=== PATIENT | female | born 1955 | race Asian ===

== ENCOUNTER → 2020-02-21 | Outpatient (CLI) | payer MEDICARE, OTHER, SELFPAY | END | disposition home or self-care (01) | LOC: LABSPEC 09:43 | PROVIDERS: PCP Physician Assistant; Referring Provider Physician Assistant; Visit Provider Physician Assistant | DX: Z11.59 Encounter for screening for other viral diseases (principal) | CPT/HCPCS: 87635; 94799; U0003 ==

== ENCOUNTER 2020-04-28 21:10 | Emergency (ER) | payer MEDICARE, OTHER, SELFPAY ==
[2020-04-28 21:10] VITALS: BP 200/95; PULSE 68; RESP 17; TEMP 36.1; O2SAT 100; BMI 26.8
--- NOTE | 2020-04-28 21:12 | ED.RN ---
NO OLD EKGS IN MUSE
--- NOTE | 2020-04-28 21:16 | EKG12_ITS ---
Test Reason : CP Blood Pressure : / mmHG Vent. Rate : 059 BPM Atrial Rate : 059 BPM P-R Int : 166 ms QRS Dur : 082 ms QT Int : 432 ms P-R-T Axes : 051 005 036 degrees QTc Int : 427 ms Sinus bradycardia Poor R wave progression Confirmed by NADIYA JONES, ZAHEER ([id number]), editorial project manager HAM MANDUJANO ([id number]) on 05/01/2020 12:31:30 PM Referred By: SOPHY Confirmed By:ZAHEER HEARN MD
[2020-04-28] MEDS: Morphine 4 MG/ML Syringe IV (21:30)
[2020-04-28] MEDS: Ondansetron 4 MG/2 ML Vial IV (21:30)
[2020-04-28] MEDS: Aspirin 81 MG TAB.CHEW 324 MG PO (21:31)
--- NOTE | 2020-04-28 21:32 | ED.VIS.GEN ---
History of Present Illness Chief Complaint: Chest Pain Informant: Patient Onset: Today Context: Gradual Onset Timing: Continuous Current Severity: Moderate Maximum Severity: Moderate Narrative: The patient is a 64-year-old female with history of coronary vascular disease status post CABG in [place] in July of this year the presents to the emergency department chest pain. The patient states her pain began slightly before eating. She states after eating, it made the pain worse. She describes cramping pain in the mid chest. She denies shortness of breath. She denies any fevers or chills. She states that she has been doing cardiac rehab without any cardiac symptoms. She has been compliant with her medications. She has been mildly nauseated but denies any vomiting. She denies any food intolerance. Prior similar symptoms: No Recent Illness/Hospitalization: No Past Medical History - Allergies and Home Meds Allergies/Adverse Reactions: Allergies birch Allergy (Verified 04/28/20 21:45) intolerance shellfish derived Allergy (Verified 04/28/20 21:45) Hives adhesive tape Adverse Reaction (Verified 04/28/20 21:45) Rash erythromycin base Adverse Reaction (Verified 04/28/20 21:45) Upset Stomach hydrocodone Adverse Reaction (Verified 04/28/20 21:45) Shortness of breath iodine Adverse Reaction (Verified 04/28/20 21:45) Anaphylaxis latex Adverse Reaction (Verified 04/28/20 21:45) Itching lisinopril Adverse Reaction (Verified 04/28/20 21:45) cough nickel Adverse Reaction (Verified 04/28/20 21:45) PT UNSURE OF REACTION Penicillins Adverse Reaction (Verified 04/28/20 21:45) Hives Primary Care Physician: Karine Ayala, PA [Primary Care Provider] - Prior records reviewed: Yes Past Medical History: - - Cardiovascular disease, hypertension Surgical History: coronary bypass surgery Review of Systems General: Denies: Chills, Fever, Sweats Eyes: Denies: Visual changes - bilaterally, Diplopia ENT: Denies: Rhinorrhea, Sore throat Cardiovascular: Reports: Chest pain. Denies: Palpitations Respiratory: Denies: Dyspnea, Cough, Dyspnea on exertion Gastrointestinal: Denies: Abdominal pain, Nausea, Vomiting, Diarrhea, Melena, Hematochezia Genitourinary: Denies: Dysuria, Hematuria, Frequency Musculoskeletal: Denies: Back pain, Extremity Pain Skin: Denies: Rash, Wounds Neurological: Denies: Headache, Weakness, Numbness Physical Exam Vital Signs/Narrative: Vital Signs Temp Pulse Resp BP Pulse Ox 04/28/20 21:10 97 F L 68 17 200/95 H 100 Inital Vital Signs reviewed: Yes General: Well nourished, Well developed, No Acute Distress Head: Normocephalic, Atraumatic Eyes: Perrl, EOMI ENT: Moist mucous membranes, No rhinorrhea Neck: Supple, Nontender Cardiovascular: Regular rate, Regular rhythm, No murmurs Respiratory: No distress, CTA bilaterally, Chest nontender Abdomen: Soft, Nontender, Nondistended, Normal bowel sounds Back: Nontender, Normal Inspection Extremities: Nontender, No edema Skin: Normal color, No rash Neurological: Alert, Oriented x3, Cranial nerves II-XII grossly intact, Normal Strength, Normal Sensation Psychological: Normal affect, Normal Mood Diagnostic/Tx/Re-eval Clinical Impression(s) from Imaging Studies Chest X-Ray 04/28/20 22:03 IMPRESSION: No acute pulmonary findings. Electronically Signed: Maurilio Gomez MD at 22:18 EDT Tel , Service support , Abnormal Lab Results 04/28/20 04/28/20 21:25 21:25 WBC 7.3 RBC 5.06 Hgb 14.0 Hct 44.0 MCV 87.0 MCH 27.7 MCHC 31.8 L RDW Std Deviation 41.5 RDW Coeff of Sarahi 13.2 Plt Count 234 MPV 11.7 Immature Gran % (Auto) 0.100 Neut % (Auto) 57.1 Lymph % (Auto) 34.1 Adams % (Auto) 7.3 Eos % (Auto) 1.1 Baso % (Auto) 0.3 Absolute Neuts (auto) 4.2 Absolute Lymphs (auto) 2.49 Nucleated RBC % 0 Sodium 140 Potassium 3.9 Chloride 106 Carbon Dioxide 28.0 Anion Gap 6 BUN 11 Creatinine 0.87 Estim Creat Clear Calc 50.31 Est GFR (MDRD) Af Amer 84 Est GFR (MDRD) Non-Af 69 BUN/Creatinine Ratio 12.7 Glucose 398 H Calcium 8.8 Magnesium 2.2 Total Bilirubin 0.30 Direct Bilirubin 0.14 AST 13 L ALT 20 Alkaline Phosphatase 215 H Troponin I < 0.015 Total Protein 7.5 Albumin 3.3 Globulin 4.2 Lipase 81 - Rhythm Strip Rhythm Strip: Sinus Rhythm Rate: 80 Ectopy: None - EKG Initial EKG Interpretation: Sinus Rhythm, No Acute Injury Pattern Prior: No Prior - Medical Decision Making Patient presents with substernal chest pain. It was worsened after eating. She was mildly nauseated with it. EKG was obtained on arrival. Was sinus rhythm. There is no acute ischemic change. I do not have an old to compare to. Patient was given nitro and morphine. She had total resolution of her pain. Her nausea was improved with Zofran. Initial cardiac enzymes were negative. The patient has not been having exertional pain. She was given a GI cocktail and is resting comfortably. My suspicion for acute coronary syndrome is low, and the patient is now pain-free. I did discuss options with the patient. She is comfortable with a repeat troponin testing at 3 hours. I do feel that this is negative, she can safely follow-up with her investigations director. Disposition is currently pending. Impression 1. Chest pain ED Disposition - Plan for ED Patient: Instructions: ED Chest Pain Atypical Unkn Cause Referrals: Karine Ayala PA [Primary Care Provider] -
[2020-04-28] MEDS: 0.9% Normal Saline 1,000 ML 150 ML IV (21:35)
[2020-04-28 21:36] VITALS: O2SAT 100
[2020-04-28 21:40] VITALS: BP 174/77; PULSE 72
[2020-04-28 21:40] LABS: Absolute Lymphocyte Count 2.49 X10^3/uL (0.83-4.51); Absolute Neutrophil Count 4.2 X10^3/uL (2.0-7.7); Basophil# 0.02 X10^3/uL; Basophil% 0.3 % (0-1); Eosinophil# 0.08 X10^3/uL; Eosinophils% 1.1 % (0-5); Lymphocyte # 2.49 X10^3/ul (4.0); Lymphocyte % 34.1 % (19-41); Mean Corp Hgb Conc 31.8 g/dL (32-36); Mean Corpuscular Hgb 27.7 pg (27.0-32.0); Mean Platelet Vol. 11.7 fl (6.2-12.0); Monocyte# 0.53 X10^3/uL; Monocyte% 7.3 % (0-10); NRBC Flagged by Analyzer 0 % (0-5); Neutrophil # 4.17 X10^3/uL (2.7-7.7); Neutrophil % 57.1 % (47-70); Platelet Count 234 K/mm3 (150-450); RBC Distribution Width CV 13.2 % (11.6-14.6); RBC Distribution Width SD 41.5 fl (35.1-43.9); Red Blood Count 5.06 M/mm3 (4.2-5.4); White Blood Count 7.3 K/mm3 (4.4-11.0)
[2020-04-28] MEDS: Nitroglycerin SL (ED/IMG/CATH) 0.4 MG TABLET SUBLINGUAL ×3 (21:40→21:50)
[2020-04-28 21:45] VITALS: BP 167/81; PULSE 70
[2020-04-28 21:50] VITALS: BP 150/79; PULSE 74
[2020-04-28 22:02] LABS: AST(SGOT) 13 U/L (15-37); Alanine Aminotransfer ALT/SGPT 20 U/L (13-56); Albumin, Serum 3.3 g/dL (3.2-5.0); Alkaline Phosphatase 215 U/L (45-117); Anion Gap 6 (5-15); BUN 11 mg/dL (7-18); BUN/Creat Ratio 12.7 RATIO (10-20); Bilirubin, Direct 0.14 mg/dL (0.00-0.30); Calcium,Total 8.8 mg/dL (8.5-10.1); Chloride 106 mmol/L (98-107); Creatinine, Serum 0.87 mg/dL (0.55-1.02); EST Glomerular Filtration Rate 69 mL/min (>60); Est Glom Filt Rate - Afr Amer 84 mL/min (>60); Estimated Creatinine Clearance 50.31 ml/min; Globulin 4.2 g/dL (2.2-4.2); Glucose 398 mg/dL (74-106); Lipase 81 U/L (73-393); Magnesium 2.2 mg/dL (1.6-2.6); Potassium 3.9 mmol/L (3.5-5.1); Protein, Total 7.5 g/dL (6.4-8.2); Sodium Level 140 mmol/L (136-145)
--- NOTE | 2020-04-28 22:03 | RAD_ITS ---
STUDY: X-RAY CHEST REASON FOR EXAM: Female, 64 years old. CHEST PAIN X 2.5 HRS. TECHNIQUE: Single frontal view of the chest. COMPARISON: None. FINDINGS: Median sternotomy plates and CABG clips. There is no demonstrated pleural abnormality. Normal size heart. Normal mediastinum and behzad. Normal visualized pulmonary arteries. Normal visualized aortic arch and descending thoracic aorta. Normal visualized thoracic spine. Normal visualized ribs, clavicles, and shoulders. There is no demonstrated abnormality of the visualized soft tissue structures of the upper abdomen. RAD/Chest 1 View (Portable) IMPRESSION: No acute pulmonary findings. Electronically Signed: Maurilio Gomez MD at 22:18 EDT Tel , Service support ,
[2020-04-28] MEDS: Mag Hydrox/Al Hydrox/Simeth 30 ML UDC PO (22:46)
[2020-04-28 23:19] VITALS: PULSE 63; RESP 16; O2SAT 96
[2020-04-29 00:43] VITALS: BP 151/77; PULSE 62; RESP 15; RESP 16; O2SAT 99
[2020-04-29] MEDS: Sucralfate 1 GM Tablet PO (00:54)
== END 2020-04-29 00:59 | disposition home or self-care (01) ==
LOC: ED 22:01
PROVIDERS: Emergency Provider Emergency Medicine; PCP Physician Assistant
DX: R07.9 Chest pain, unspecified (principal); I25.10 Atherosclerotic heart disease of native coronary artery without angina pectoris; I10 Essential (primary) hypertension; Z95.1 Presence of aortocoronary bypass graft
CPT/HCPCS: 71045; 80048; 80076; 83690; 83735; 84484; 85025; 93005; 96361; 96374; 96375; 99284; J7030; A4216; J2405

== ENCOUNTER 2020-09-28 14:41 | Emergency (ER) | payer MEDICARE, OTHER, SELFPAY ==
[2020-09-28 14:42] VITALS: BP 182/101; PULSE 77; RESP 16; TEMP 36.6; O2SAT 100; BMI 25.7
--- NOTE | 2020-09-28 15:08 | CT_ITS ---
STUDY: CT ABDOMEN AND PELVIS WITHOUT CONTRAST REASON FOR EXAM: Female, 64 years old. Right lower quadrant pain RADIATION DOSAGE (If Supplied By Facility): CTDIvol = ( 6.85 ) mGy, DLP = ( 312.82 ) mGycm TECHNIQUE: Transaxial images were obtained from the dome of the diaphragm to the symphysis pubis without oral contrast, and without intravenous contrast. Sagittal and coronal images were reconstructed. Individualized dose optimization techniques were used for this CT. COMPARISON: None. FINDINGS: The visualized lung bases are unremarkable. Postsurgical change status post CABG Normal liver. Contracted thick-walled gallbladder without calcified stones likely physiologic however if concern for gallbladder disease ultrasound recommended.. Normal spleen. Normal pancreas. Normal bilateral adrenal glands. Normal right kidney. Normal left kidney. Normal visualized stomach. Normal small intestine. Normal colon. The appendix is visualized and appears normal. Atherosclerotic changes of the aorta without evidence for aneurysm Normal inferior vena cava. Normal retroperitoneum. Incompletely distended thick-walled bladder likely of no significance. Normal abdominal wall. Lumbar spine demonstrates mild spondylosis CT/Abdomen/Pelvis without Cont IMPRESSION: Contracted thick-walled gallbladder without calcified stones likely physiologic however if concern for gallbladder disease ultrasound recommended. No acute abnormalities. Specifically, no evidence for renal obstruction or acute appendicitis. Electronically Signed: Octavio Pearce MD at 15:56 EDT , Service support ,
[2020-09-28] MEDS: 0.9% Normal Saline 1,000 ML 1000 ML IV (15:24)
[2020-09-28] MEDS: Morphine 4 MG/ML Syringe IV (15:24)
[2020-09-28] MEDS: Ondansetron 4 MG/2 ML Vial IV (15:24)
[2020-09-28 15:27] LABS: Absolute Lymphocyte Count 2.77 X10^3/uL (0.83-4.51); Absolute Neutrophil Count 2.7 X10^3/uL (2.0-7.7); Basophil# 0.02 X10^3/uL; Basophil% 0.3 % (0-1); Eosinophil# 0.12 X10^3/uL; Hematocrit 43.7 % (37-47); Hemoglobin 14.2 g/dL (12.0-15.0); Lymphocyte # 2.77 X10^3/ul (4.0); Mean Corp Hgb Conc 32.5 g/dL (32-36); Mean Corpuscular Hgb 27.8 pg (27.0-32.0); Mean Corpuscular Volume 85.7 fL (81-99); Mean Platelet Vol. 11.4 fl (6.2-12.0); Monocyte# 0.39 X10^3/uL; Monocyte% 6.5 % (0-10); NRBC Flagged by Analyzer 0 % (0-5); Neutrophil # 2.71 X10^3/uL (2.7-7.7); Platelet Count 217 K/mm3 (150-450); RBC Distribution Width SD 40.5 fl (35.1-43.9)
[2020-09-28 15:33] LABS: Bacteria 0 SEEN /hpf (None Seen); Mucous, Urine 0 SEEN /hpf (<or=2+); Red Blood Cells-Urine 0 SEEN /hpf (0-5); Squamous Epithelial Cells - UA 0 SEEN /hpf (5-10); White Blood Cells 0 SEEN /hpf (0-5)
[2020-09-28 15:34] LABS: Color, Urine Yellow (Yellow); Glucose, Dipstick 1000 mg/dl (Normal); Ketone-Dipstick Negative (Negative); Leukocyte Esterase-Dipstick Negative /ul (Negative); Nitrite-Dipstick Negative (Negative); Occult Blood-Urine Negative /ul (Negative); Protein-Dipstick Negative (Negative); Urine Bilirubin Dipstick Negative (Negative); Urine Clarity Clear (Clear); Urine Urobilinogen Normal (Normal)
[2020-09-28 15:47] LABS: ALB/GLOB Ratio 0.7 RATIO (0.9-2.4); AST(SGOT) 30 U/L (15-37); Alanine Aminotransfer ALT/SGPT 26 U/L (13-56); Albumin, Serum 3.3 g/dL (3.2-5.0); Alkaline Phosphatase 146 U/L (45-117); Anion Gap 5 (5-15); BUN 15 mg/dL (7-18); BUN/Creat Ratio 22.6 RATIO (10-20); Calcium,Total 8.9 mg/dL (8.5-10.1); Chloride 104 mmol/L (98-107); Creatinine, Serum 0.66 mg/dL (0.55-1.02); EST Glomerular Filtration Rate 95 mL/min (>60); Est Glom Filt Rate - Afr Amer 114 mL/min (>60); Estimated Creatinine Clearance 43.77 ml/min; Globulin 4.7 g/dL (2.2-4.2); Glucose 248 mg/dL (74-106); Potassium 4.2 mmol/L (3.5-5.1); Sodium Level 135 mmol/L (136-145)
--- NOTE | 2020-09-28 16:11 | US_ITS ---
STUDY: ABDOMINAL ULTRASOUND - RIGHT UPPER QUADRANT REASON FOR VISIT: Female, 64 years old Pain TECHNIQUE: Ultrasound evaluation of the right upper quadrant was performed with real-time and static gama-scale imaging. TECHNICAL QUALITY: Adequate. COMPARISON: None. FINDINGS: Liver: The liver measures 13 cm. There is normal echogenicity of the liver. The bile ducts are within normal limits. There is hepatic color flow. The direction of portal flow is hepatopetal. There is no demonstrated mass lesion. Gallbladder: Normal distended gallbladder. The gallbladder wall measures 2.4 mm. There is a negative sonographic Fletcher''s sign. There is no pericholecystic fluid. There are no gallstones. Common Bile Duct (C.B.D.): The common bile duct measures 2.8 mm. Pancreas: Normal size of the head, body and tail of the pancreas. There is normal echogenicity of the pancreas. There is no demonstrated pancreatic mass or cyst. Right Kidney: Normal size of the right kidney. The right kidney measures 9.2 x 5.5 x 5.2 cm. Normal renal cortex. The right cortex measures 1.5 cm. There is no demonstrated renal mass or cyst. There is no right hydronephrosis. US/Gallbladder IMPRESSION: Normal right upper quadrant ultrasound examination. Electronically Signed: Octavio Pearce MD at 18:38 EDT , Service support ,
[2020-09-28 17:00] VITALS: BP 164/83; PULSE 69; RESP 16; O2SAT 100
--- NOTE | 2020-09-28 18:43 | ED.DCSUM_ITS ---
- ER Visit Summary Date of Service: 09/28/20 Chief Complaint: Abdominal pain History of Present Illness: The patient is a 64 F who sees Kirt Ayala. She reports she has right-sided abdominal pain began 4 to 5 days ago. Is gradually gotten worse. It is a continuous sharp pain is 10 of 10 with movement 5 out of 10 at rest. She denies any associated nausea, vomiting, or diarrhea. Her last bowel movement was today. No melena or hematochezia. No dysuria or frequency. She denies any flank pain. Physical Examination: Vitals: Stable. Afebrile. General: Well-nourished and well-developed. Head: Normocephalic atraumatic. Neck: Supple, no lymphadenopathy. No JVD. Nontender. Cardiovascular: Regular rate and rhythm. No murmurs. Respiratory: No respiratory distress. Clear to auscultation bilaterally. Abdominal: Soft, mild tenderness to palpation in the right upper and right lower quadrants, nondistended, normal bowel sounds. No guarding, rebound, or peritoneal signs. Back: Nontender. Extremities: Nontender, no edema. Skin: Normal color, no rash. Neurologic: Alert and oriented ?3. Cranial nerves II through XII are intact. Normal strength and sensation. Psych: Normal affect. Test Results: CBC shows stable neutrophils 45 lymphocytes 46. Chem-7 shows a sodium 135 and glucose 248. LFTs show globulin of 4.7 and alk phos of 146. Clinical Impression(s) from Imaging Studies Abdomen/Pelvis CT 09/28/20 15:08 IMPRESSION: Contracted thick-walled gallbladder without calcified stones likely physiologic however if concern for gallbladder disease ultrasound recommended. No acute abnormalities. Specifically, no evidence for renal obstruction or acute appendicitis. Electronically Signed: Octavio Pearce MD at 15:56 EDT , Service support , Gallbladder Ultrasound 09/28/20 16:11 IMPRESSION: Normal right upper quadrant ultrasound examination. Electronically Signed: Octavio Pearce MD at 18:38 EDT , Service support , Emergency Department Course and Treatment: Patient was given morphine and Zofran IV. She is resting comfortably. Treatment Plan: Patient will be discharged with Zofran as needed. Instructed use Tylenol and/or ibuprofen for pain. Follow-up with her primary care physician 1 to 2 days if not improving. Return to the emergency department for any worsening symptoms. Disposition: To home in improved and stable condition. Impression: 1. Abdominal pain, uncertain cause. This note was generated with [employer] dictation software. It may contain incorrect words, spelling, and punctuation that were not noted in review of the chart prior to signing ED Disposition - Plan for ED Patient: Disposition: Home or Assisted Living Instructions: ED Abdominal Pain Unkn Cause Fem Prescriptions: Ondansetron [Zofran Odt] 4 mg PO Q8H PRN PRN #10 tablet PRN Reason: Nausea Prescription Printed Referrals: Karine Ayala PA [Primary Care Provider] - 1-2 Days if not improving
[2020-09-28 19:02] VITALS: BP 156/88; PULSE 89; RESP 16; O2SAT 96
== END 2020-09-28 19:02 | disposition home or self-care (01) ==
LOC: ED 15:35
PROVIDERS: Emergency Provider Emergency Medicine; PCP Physician Assistant
DX: R10.30 Lower abdominal pain, unspecified (principal); I25.10 Atherosclerotic heart disease of native coronary artery without angina pectoris; E11.9 Type 2 diabetes mellitus without complications; I10 Essential (primary) hypertension
CPT/HCPCS: 74176; 76705; 80053; 81001; 85025; 96361; 96374; 96375; 99283; J7030; Q9967; A4216; J2405

== ENCOUNTER 2021-06-05 11:03 | Emergency (ER) | payer MEDICARE, OTHER, SELFPAY ==
[2021-06-05 11:04] VITALS: BP 148/95; PULSE 113; RESP 16; TEMP 37.4; O2SAT 97; BMI 23.0
--- NOTE | 2021-06-05 11:34 | EX.ED.DYSGE1 ---
HPI History of Present Illness Chief Complaint: Cough Informant: patient Narrative Narrative: 65-year-old female states that she has been ill with Covid symptoms since . Patient notes that she has been doing reasonably well but her diaphragm hurts from coughing. She notes fever headaches body aches. She is a diabetic and has had prior CABG. She denies any shortness of breath at this time. She did a home test last night. [facility] Medical History (Updated 06/05/21 @ 11:[address] Epifanio Germain, ) CAD (coronary artery disease) Home Medications aspirin 81 mg PO DAILY@0800 04/28/20 [History Last Taken Unknown] atorvastatin 80 mg PO QHS 04/28/20 [History Last Taken Unknown] benzonatate 100 mg PO TID PRN PRN 04/28/20 [History Last Taken Unknown] clopidogrel 75 mg PO DAILY 04/28/20 [History Last Taken Unknown] dulaglutide 0.75 mg SQ QWEEK 04/28/20 [History Last Taken Unknown] duloxetine 30 mg PO DAILY 04/28/20 [History Last Taken Unknown] empagliflozin 10 mg PO DAILY 04/28/20 [History Last Taken Unknown] fluoxetine 20 mg PO DAILY 04/28/20 [History Last Taken Unknown] insulin degludec 30 unit SQ QHS 04/28/20 [History Last Taken Unknown] insulin lispro 8 unit SQ TID 04/28/20 [History Last Taken Unknown] losartan 25 mg PO DAILY 04/28/20 [History Last Taken Unknown] metformin 1,000 mg PO BID 04/28/20 [History Last Taken Unknown] metoprolol succinate 25 mg PO DAILY 04/28/20 [History Last Taken Unknown] omeprazole 20 mg PO DAILY 04/28/20 [History Last Taken Unknown] sucralfate 1 gm PO 4X/DAY #30 udc 04/29/20 [Rx Last Taken Unknown] ondansetron 4 mg PO Q8H PRN PRN #10 tablet 09/28/20 [Rx Last Taken Unknown] benzonatate 200 mg PO TID PRN PRN #30 capsule 06/05/21 [Rx Last Taken Unknown] Allergy/AdvReac Type Severity Reaction Status Date / Time birch Allergy intolerance Verified 06/05/21 11:06 shellfish derived Allergy Hives Verified 06/05/21 11:06 adhesive tape AdvReac Rash Verified 06/05/21 11:06 erythromycin base AdvReac Upset Verified 06/05/21 11:06 Stomach hydrocodone AdvReac Shortness Verified 06/05/21 11:06 of breath iodine AdvReac Anaphylaxis Verified 06/05/21 11:06 latex AdvReac Itching Verified 06/05/21 11:06 lisinopril AdvReac cough Verified 06/05/21 11:06 nickel AdvReac PT UNSURE Verified 06/05/21 11:06 OF REACTION Penicillins AdvReac Hives Verified 06/05/21 11:06 Surgical History (Updated 06/05/21 @ 11:[address] Epifanio Germain DO) Hx of CABG Social History (Updated 06/05/21 @ 11:[address] Epifanio Germain DO) current gender identity: female Smoking Status: Never smoker ROS ROS ED Constitutional Constitutional ED: Reports chills and fever(s); Denies weight loss Eyes Eyes: Denies change in vision or diplopia ENT ENT ED: Reports rhinorrhea; Denies ear pain or sore throat Cardiovascular Cardiovascular: Reports chest pain; Denies orthopnea, palpitations or racing heartbeat Respiratory/Chest Respiratory/Chest: Reports cough; Denies dyspnea, dyspnea on exertion, orthopnea or sputum Gastrointestinal Gastrointestinal: Reports nausea; Denies abdominal pain, diarrhea or vomiting Genitourinary Genitourinary ED: Denies dysuria, hematuria or urinary frequency Musculoskeletal Musculoskeletal: Reports myalgias; Denies arthralgias Integumentary Denies abscess or rash Neurologic Neurologic: Reports headache(s); Denies weakness Psychiatric Psychiatric: Denies anxiety, depression, suicidal ideation or suicidal thoughts Endocrine Endocrinology: Denies polydipsia, polyphagia or polyuria Allergic/Immunologic Allergic/Immunologic ED: Denies mouth swelling, tongue swelling or urticaria EXAM Physical Exam Const Vital Signs: 06/05/21 11:04 Temperature 99.4 F H Temperature Source Temporal Pulse Rate 113 H Respiratory Rate 16 Blood Pressure 148/95 H Blood Pressure Mean 112 Pulse Ox 97 Oxygen Delivery Method Room Air Positive well nourished and well developed General Appearance ED: well developed HEENT Reports normocephalic, head/scalp atraumatic, TM's clear and moist mucous membranes Negative for trauma Tympanic Membrane ED: Yes TM's clear Eyes PERRL and EOMs intact bilaterally Neck no lymphadenopathy, supple and no JVD Resp normal respiratory effort and clear to auscultation bilaterally Cardio regular rate, regular rhythm and no murmurs GI normal to inspection, nondistended, normoactive bowel sounds and non-tender Palpation: soft Back/Spine no CVA tenderness and normal ROM Extremity normal to inspection General Extremety ED: Negative for edema General Extremity: Negative for edema Neuro oriented x3 and CN's II-XII intact bilaterally Sensorium / Orientation: alert Motor Exam: strength 5/5 throughout Psych mental status grossly normal Mood & Affect: Negative for depressed or tearful Skin no rashes or lesions noted and no wounds MDM MDM MDM Narrative Medical decision making narrative: Patient clinically appears to be a well Covid patient. She states that Bartolo Flaherty have helped her out in the past and would like some. I think this is very reasonable. This point she is not requiring any supplemental oxygen. She is on about day 10 of Covid. Discharge Plan Triage Chief Complaint: Cough ED Provider: Epifanio Germain Dx/Rx/DC Orders Clinical Impression: COVID-19, Cough Instructions: Coronavirus Disease 2019 (COVID-19): Caring for Yourself or Others Prescriptions: New benzonatate [benzonatate] 100 MG capsule 200 mg PO TID PRN PRN (Reason: Cough) Qty: 30 RF: 0 No Action atorvastatin 80 MG tablet 80 mg PO QHS RF: 0 clopidogrel 75 MG tablet 75 mg PO DAILY RF: 0 aspirin 81 MG tablet 81 mg PO DAILY@0800 RF: 0 benzonatate 100 MG capsule 100 mg PO TID PRN PRN (Reason: Cough) RF: 0 losartan 25 MG tablet 25 mg PO DAILY RF: 0 omeprazole 20 MG capsule 20 mg PO DAILY RF: 0 metoprolol succinate 25 MG tablet extended release 24 hr 25 mg PO DAILY RF: 0 fluoxetine 20 MG capsule 20 mg PO DAILY RF: 0 insulin lispro 100 UNIT/ML insulin pen 8 unit SQ TID RF: 0 metformin 1,000 MG tablet extended release 24hr 1,000 mg PO BID RF: 0 duloxetine 30 MG capsule 30 mg PO DAILY RF: 0 empagliflozin 10 MG tablet 10 mg PO DAILY RF: 0 dulaglutide 0.75 MG/0.5 ML pen injector 0.75 mg SQ QWEEK RF: 0 insulin degludec 100 UNIT/ML solution 30 unit SQ QHS RF: 0 sucralfate 1 GM/10 ML suspension 1 gm PO 4X/DAY Qty: 30 RF: 0 ondansetron 4 MG tablet 4 mg PO Q8H PRN PRN (Reason: Nausea) Qty: 10 RF: 0 Primary Care Provider: Karine Ayala Referrals: Karine Ayala, PA [Primary Care Provider] - As Needed Disposition Disposition: Home, Self Care
[2021-06-05 11:43] VITALS: RESP 16
== END 2021-06-05 11:45 | disposition home or self-care (01) ==
PROVIDERS: Emergency Provider Emergency Medicine; PCP Physician Assistant
DX: U07.1 COVID-19 (principal); E11.9 Type 2 diabetes mellitus without complications; I25.10 Atherosclerotic heart disease of native coronary artery without angina pectoris; Z95.1 Presence of aortocoronary bypass graft; Z79.4 Long term (current) use of insulin; Z79.899 Other long term (current) drug therapy
CPT/HCPCS: 99282

== ENCOUNTER 2021-09-12 11:57 | Emergency (ER) | payer OTHER, MEDICARE, SELFPAY ==
[2021-09-12 11:58] VITALS: BP 202/102; PULSE 94; RESP 18; TEMP 36.2; O2SAT 96; BMI 21.9
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
== END 2021-09-12 13:39 | disposition home or self-care (01) ==
PROVIDERS: Emergency Provider Emergency Medicine; PCP Physician Assistant; Visit Provider Emergency Medicine
DX: S20.20XA Contusion of thorax, unspecified, initial encounter (principal); Z79.4 Long term (current) use of insulin; S40.022A Contusion of left upper arm, initial encounter; S80.11XA Contusion of right lower leg, initial encounter; V43.52XA Car driver injured in collision with other type car in traffic accident, initial encounter; Y92.410 Unspecified street and highway as the place of occurrence of the external cause; I25.10 Atherosclerotic heart disease of native coronary artery without angina pectoris; Z79.82 Long term (current) use of aspirin; Z79.02 Long term (current) use of antithrombotics/antiplatelets; Z79.899 Other long term (current) drug therapy; Z95.1 Presence of aortocoronary bypass graft
CPT/HCPCS: 71045; 73080; 73110; 93005; 99282

== ENCOUNTER 2022-10-07 10:22 | Emergency (ER) | payer OTHER, MEDICARE, SELFPAY ==
[2022-10-07 10:23] VITALS: BP 184/100; PULSE 67; RESP 18; TEMP 35.5; O2SAT 100
[2022-10-07 10:30] VITALS: O2SAT 100; BMI 25.1
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
[2022-10-07] MEDS: Acetaminophen 325 MG Tablet 650 MG PO (11:25)
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
== END 2022-10-07 12:22 | disposition home or self-care (01) ==
PROVIDERS: Emergency Provider Emergency Medicine; PCP Physician Assistant; Visit Provider Emergency Medicine
DX: Z04.1 Encounter for examination and observation following transport accident (principal); R07.89 Other chest pain; R07.81 Pleurodynia; I25.10 Atherosclerotic heart disease of native coronary artery without angina pectoris; Z95.1 Presence of aortocoronary bypass graft; M25.511 Pain in right shoulder; M25.512 Pain in left shoulder
CPT/HCPCS: 71046; 93005; 99284

== ENCOUNTER → 2024-02-27 | Outpatient (CLI) | payer MEDICARE, OTHER, SELFPAY ==
--- NOTE | 2024-02-27 08:45 | RAD_ITS ---
STUDY: X-RAY - ESOPHAGUS (BARIUM SWALLOW) WITH FLUOROSCOPY REASON FOR EXAM: Female, 68 years old. Dysphagia, pharyngoesophageal phase TECHNIQUE: 20 view(s) of the esophagus were obtained following swallowing of barium. FLUOROSCOPY TIME (if supplied): (34 seconds) minutes/seconds. 8.64 mGy. COMPARISON: None. FINDINGS: There is no demonstrated esophageal foreign body. There is no demonstrated stricture or mucosal abnormality. Normal gastroesophageal junction, without a demonstrated hiatal hernia. There is evidence of aspiration into the left lower lobe bronchus. The patient ingested a 12 mm tablet of barium without any difficulty. There is atherosclerotic calcification of the aortic arch with tortuosity of the descending aorta. Normal visualized pulmonary parenchyma. There are diffuse degenerative changes of the visualized thoracic spine. RAD/Esophagus Dual Contrast IMPRESSION: Aspiration into the left lower lobe bronchus. No evidence of gastroesophageal reflux or esophageal obstruction. Electronically Signed: Iglesia Bartlett MD at 9:37 EDT ,
== END | disposition home or self-care (01) ==
PROVIDERS: PCP Physician Assistant; Referring Provider Otolaryngology Otolaryngology/Facial Plastic Surgery; Visit Provider Otolaryngology Otolaryngology/Facial Plastic Surgery
DX: R13.14 Dysphagia, pharyngoesophageal phase (principal)
CPT/HCPCS: 74221

== ENCOUNTER 2024-07-09 09:30 | Outpatient (RCR) | payer MEDICARE, OTHER, SELFPAY ==
--- NOTE | 2024-03-25 13:55 | HP.SP.EV_ITS ---
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: CAMILO History Attending Doctor: Referring Doctor: Reason for Referral: ASPIRATION/RX HERE Medical Diagnosis: Dysphagia Date of Onset of Diagnosis: December 2023 Previous speech therapy: No Other Relevant Medical History/Diagnoses/Surgery: Acid reflux, Smoking Status: Never smoker Diagnosis Diagnosis: Oropharyngeal dysphagia Pain Is pain an issue with your current prescribed condition?: No Personal Preferred language: [place] Patient Allergies Allergies Allergies: Allergies birch Allergy (Verified 10/07/22 10:25) intolerance shellfish derived Allergy (Verified 10/07/22 10:25) Hives adhesive tape Adverse Reaction (Verified 10/07/22 10:25) Rash erythromycin base Adverse Reaction (Verified 10/07/22 10:25) Upset Stomach hydrocodone Adverse Reaction (Verified 10/07/22 10:25) Shortness of breath iodine Adverse Reaction (Verified 10/07/22 10:25) Anaphylaxis latex Adverse Reaction (Verified 10/07/22 10:25) Itching lisinopril Adverse Reaction (Verified 10/07/22 10:25) cough nickel Adverse Reaction (Verified 10/07/22 10:25) PT UNSURE OF REACTION Penicillins Adverse Reaction (Verified 10/07/22 10:25) Hives Subjective Dysphagia Symptoms Reported Symptoms/Problems with: Coughing, Choking, Difficulty Swallowing Solids, Difficulty Swallowing Liquids and Difficulty Swallowing Pills Current Diet Solids Current Diet: Soft Current Diet Liquids Current Liquids: Thin Objective Dysphagia Thin Liquids Oral Transit: WNL Bolus clearance: fully cleared Gagging: No Cough: none observed/unable to assess Pharyngeal phase: suspect pharyngeal deficits Patient Report: Patient had natural double swallow and at times 3-4 swallows. Comments: No altered vocal quality or throat clearing/coughing observed but patient reports it happens it nearly every meal on solids and liquids. Pureed Administered via: Spoon Oral Preparation: WNL Oral Transit: WNL Cough: none observed/unable to assess Pharyngeal phase: suspect pharyngeal deficits Comments: No altered vocal quality or throat clearing/coughing observed but patient reports it happens it nearly every meal on solids and liquids. Soft & Bite sized (Mechanical) Oral Transit: WNL Bolus clearance: fully cleared Gagging: No Cough: none observed/unable to assess Pharyngeal phase: suspect pharyngeal deficits Patient Report: She reported multiple swallows and then a drink needed to help clear residue felt in pharynx. Comments: Observed a double swallow naturally completed and one time she needed 3 -4 swallows to clear. When asked where she felt residue she pointed to area of vallecula. No altered vocal quality or throat clearing/coughing observed but patient reports it happens it nearly every meal on solids and liquids. She does not use any sauces to moisten foods that are difficult for her. Swallowing Impairment Contributing Factors to Swallowing Impairment: Impaired Oral-Pharyngeal Transport Impact Impact on Safety & Functioning: Risk for Aspiration and Risk for Inadequate Nutrition/Hydration Recommendations Modified Barium Swallow/Cookie Swallow Recommended: Yes Swallowing Treatment: Yes Diet Texture Recommendations Solids: Easy to Chew (Level 7) Liquids: Thin (Level 0) Safety Saftey Precautions/Swallowing Recommendations (Check all that Apply): Small Sips & Bites when Eating, Multiple Swallows and Alternate Liquids & Solids Results Swallowing Within Normal Limits: No Swallowing Diagnosis: Oropharyngeal Phase Dysphagia (R13.12) Objective Oral Motor Oral Status Dentition: Missing Teeth Labial Impairment: WNL Closure: WNL Pucker: WNL Retraction: WNL Alternating Pucker/Retraction: WNL Involuntary Movement noted: No Lingual Impairment: WNL Protrusion: WNL Retraction: WNL Lateralization: WNL Involuntary Movement: No Jaw Impairment: WNL Respiratory Status Respiratory Status: Room Air Reference: Neuro-QoL instrument Radiation Oncology Patient Plan Plan Plan: Dysphagia therapy is recommended after instrumental swallow evaluation. Recommend FEES. [place] and plans to complete therapy and testing when she returns in May. Recommendations Treatment Warranted: Yes Treatment Warranted: Dysphagia Progress Prognosis: Good Frequency Frequency: 1x/Week Additional (Frequency): Patient will be seen for one visit then complete FEES if physician signs order. Duration: 2 Weeks Visits in this POC: 2 Patient/Family Goal Patient/Family Goal: Patient wishes to be able to swallow without coughing and fear of choking. Goals that are Established Determination:: Goals will be added/modified as deemed necessary and appropriate. Therapy will be discontinued when results of re-evaluation indicate therapy is no longer needed or lack of progress has been documented. Goal #1-5 Goal #1: Patient will tolerate the least restrictive means of nutrition to facilitate adequate hydration/nutrition with optimum safety and efficiency of swallowing function during P.O. intake without overt signs and symptoms of aspiration. Goal #2: Patient will demonstrate and utilize recommended compensatory swallowing techniques to facilitate improved airway protection and decreased risk for aspiration during PO intake, across 3 out of 3 sessions. Goal #3: Patient will demonstrate and utilize recommended velopharyngeal and oropharyngeal strengthening exercises to facilitate improved velopharyngeal and oropharyngeal strength and coordination with minimal cueing and prompting provide by the clinician, across 3 to 3 sessions. Education Patient has Indicated that the Following Identified Educational Needs: None The Patient has indicated that they have no educational or learning abilities that may effect their care.: Yes Patient Instruction Patient Education: Diagnosis, Treatment Plan, Diet Level and Home Exercise Program Other Education: Gave patient Beata, Maskao and Effortful Swallow handouts. Person Taught: Patient Teaching Method: Discussion Response to teaching: Verbalize Understanding
--- NOTE | 2024-05-21 10:20 | HP.SPFEES ---
FEES Patient Information Date of Evaluation: 05/20/24 Time of Evaluation: 10:10 Diagnosis: Dysphagia Staff Providing this Care/Treatment:: NASH Direct Billable Minutes: 120 History: Past Medical History:: Patient was evaluated today for oropharyngeal dysphagia with FEES study that was recommended during her outpatient dysphagia evaluation on 03/25/24. Her symptoms started in December 2023 and have not improved since that time. There was no significant event during that time (No CVA, etc). She has a history of GERD. 342 TX/DX History:: No Subjective: Subjective:: Currently, the patient reports that she has to swallow multiple times for food and liquids to clear out of her throat. Current Diet: Drinks/Liquids:: Thin Foods:: Regular Medication Administration:: orally Respiratory Status Observation:: room air, pulse ox 98 prior to FEES Vocal Quality: Observations:: WNL Cognition: Observations:: WNL Position During FEES: Position During FEES:: Slightly reclined Location: In Chair Fiberoptic Endoscope: Size: 3.4 mm Nare Used:: Right Comments: Patient had narrow nasal passage. Anatomy: Nasopharynx Tissue Description: [place] and Moist Phonation: Arytenoid Adduction: WNL Vocal Fold Adduction: WNL Penetration-Aspiration Scale Penetration-Aspiration Scale Thin Liquids by Single Straw Food/Drink Provided:: Water Swallow Onset Location:: Pyriform Sinuses PAS Score: PAS Score *1 Visual Analysis of Swallowing Efficiency and Safety (VASES) after the swallow: Oropharynx and Hypopharynx Comments:: Patient had mild residue in the vallecula and pyriform sinuses following the swallow. A natural second swallow cleared majority of the residue. Strategies Trialed:: Small single sips reduced the amount of residue. Patient needed a double swallow to clear which she naturally completed. After second swallow patient cleared approximately 95% of residue. Additional Comments:: Premature spillage to the pyriform sinuses noted. Reduced pharyngeal contraction noted. Thin Liquids by Sequential Straw Food/Drink Provided:: Water Swallow Onset Location:: Pyriform Sinuses PAS Score: PAS Score *1 Visual Analysis of Swallowing Efficiency and Safety (VASES) after the swallow: Oropharynx and Hypopharynx Comments:: Patient had moderate residue in pyriform sinuses as well as in vallecula with increased drink size. Additional Comments:: Single, small sips were better to reduce spillage and residue. Reduced pharyngeal contraction noted. Puree Textures Food/Drink Provided:: Pudding Swallow Onset Location:: Vallecula PAS Score: PAS Score *1 Visual Analysis of Swallowing Efficiency and Safety (VASES) after the swallow: Oropharynx Comments:: Mild residue noted in the vallecula. Strategies Trialed:: A effortful swallow helped clear residue but did not completely remove it. A liquid wash after effortful swallow also cleared a slight amount but not fully cleared. Additional Comments:: Reduced pharyngeal contraction noted. Regular Textures Food/Drink Provided:: !/4 picece of [place], Mini pretzel 1/2 Swallow Onset Location:: Vallecula PAS Score: PAS Score *1 Visual Analysis of Swallowing Efficiency and Safety (VASES) after the swallow: Oropharynx and Hypopharynx Comments:: She had mild residue immediately in vallecula but noted that additional residue came back over base of the tongue after the swallow was completed with a delay. She exhibited a natural double swallow but noted that second swallow was delayed at times. A liquid wash did not appear to change the amount of residue. She was cued to complete an effortful swallow which did residue the residue. Strategies Trialed:: Patient appropriately took small bites independently. Additional Comments:: Reduced pharyngeal contraction noted. Diagnosis/Impressions Diagnosis: Mild to Moderate Oropharyngeal dysphagia Swallowing Impairment: Impaired Oropharyngeal Transport, Premature Posterior Loss and Decreased Pharyngeal Contraction Swallowing Impairment Comments: Pt had orophyarngeal dysphagia due to reduced oral control and premature spillage. Pt's pharyngeal phase of the swallow is primarily marked by weak pharyngeal contraction with reduced base of tongue function and pharyngeal stripping wave to be mild to moderate d/t pharyngeal residue. Recommendations Diet: Regular Textures Medication Administration:: Whole in puree Comments: Pharyngeal phase of the swallow is primarily marked by weak pharyngeal contraction evidenced by a continued visualization of the tissues (i.e., pink out) versus total occlusion of visual field (i.e., white out) with noted pharyngeal residue in vallecula and pyriform sinuses. Compensatory Strategies: Small Bites, Small Sips, Slow Rate, Multiple Swallows, Alternate bites/solids and sips/liquids, Sitting upright and Remain sitting upright for 30 minutes after PO intake Recommend Repeat Instrumental Swallow Assessment: TBD Need for Skilled Speech Therapy Services: Yes Education Completed: 1. Described result of evaluation. and 2. Pt understands evaluation & agrees with goals and treatment plan. Frequency Frequency: 1x/Week Additional (Frequency): Patient will be seen for one visit then complete FEES if physician signs order. Duration: 6 Weeks Visits in this POC: 2 Goals that are Established Patient/Family Goal: Patient wishes to be able to swallow without coughing and fear of choking. Determination:: Goals will be added/modified as deemed necessary and appropriate. Therapy will be discontinued when results of re-evaluation indicate therapy is no longer needed or lack of progress has been documented. Goal #1: Patient will tolerate the least restrictive means of nutrition to facilitate adequate hydration/nutrition with optimum safety and efficiency of swallowing function during P.O. intake without overt signs and symptoms of aspiration. Goal #2: Patient will demonstrate and utilize recommended compensatory swallowing techniques to facilitate improved airway protection and decreased risk for aspiration during PO intake, across 3 out of 3 sessions. Goal #3: Patient will demonstrate and utilize recommended velopharyngeal and oropharyngeal strengthening exercises to facilitate improved velopharyngeal and oropharyngeal strength and coordination with minimal cueing and prompting provide by the clinician, across 3 to 3 sessions.
--- NOTE | 2024-07-09 11:19 | HP.SP.DC_ITS ---
ST Discharge Summary Discharged: Discharge: Zakia Cason is discharged from [facility] speech therapy as of July 09, 2024. She was evaluated on 03/25/24 for dysphagia after referral from [facility]. She has a FEES (Fiberoptic Endoscopic Evaluation of the Swallow) on 05/20/24. It was delayed due to the patient being out of the country for a time period. The recommendations: Diet: Regular Textures Medication Administration: Whole in puree Comments: Pharyngeal phase of the swallow is primarily marked by weak pharyngeal contraction evidenced by a continued visualization of the tissues (i.e., pink out) versus total occlusion of visual field (i.e., white out) with noted pharyngeal residue in vallecula and pyriform sinuses. Compensatory Strategies: Small Bites, Small Sips, Slow Rate, Multiple Swallows, Alternate bites/solids and sips/liquids, sitting upright and remain sitting upright for 30 minutes after PO intake. She was seen for one session on 05/24/24 to educate the patient on results of testing and provide the patient with dysphagia exercises. All questions were answered. A final session was completed on July 09, 2024, with all questions answered and patient is able to continue exercises independently. She requested discharge due to cost of copays and therapist was in agreement. She was provided with information on how to return to therapy in the future as needed. Please see reports and daily notes to see complete details. Thank you for allowing me to participate in the care of this patient.
== END 2024-07-09 19:00 | disposition home or self-care (01) ==
LOC: SP 09:30
PROVIDERS: PCP Physician Assistant; Referring Provider Otolaryngology Otolaryngology/Facial Plastic Surgery; Visit Provider Otolaryngology Otolaryngology/Facial Plastic Surgery
DX: R13.12 Dysphagia, oropharyngeal phase (principal)
CPT/HCPCS: 92507; 92526; 92610; 92612

== ENCOUNTER 2024-10-03 11:30 | Outpatient (RCR) | payer MEDICARE, OTHER, SELFPAY ==
--- NOTE | 2024-08-01 12:13 | HP.PTEVAL_ITS ---
Patient's Visit Information Visit Information Visit Information: ОЛЕГ CRAFT is a 68 year old F referred to Physical Therapy by TULIO Castillo with a diagnosis of LUMBAR DDD. Date of Evaluation: 08/01/24 Physical Therapist: Oly Ghosh PT, Cert MDT Visit Plan Frequency: 2-3x /Week Duration: 4-6 Weeks Plan: AQUATIC THERAPY (IF CLEARED BY BLAST HOLE DRILLER FOR INCISION HEALING) AND/OR LAND THERAPY TOLERATED FOR PAIN RELIEF, POSTURE CORRECTION/STRENGTHENING, INSTRUCTION IN APPROPRIATE BODY MECHANICS AND ACTIVITY MODIFICATIONS. DLS STARTING WITH A NEUTRAL SPINE PROGRESSING ROM TOLERATED. KEAGAN LE ROM, STRETCHING AND STRENGTHENING. HEP INSTRUCTION. 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 REPORTS WORK INVOLVES LIFTING UP TO ABOUT 30 LBS. BACK TO WORK YESTERDAY 07/31/24 AFTER CARDIAC CATH 07/19/24. Present symptoms: KEAGAN LOW BACK PAIN AND R HIP PAIN. R THIGH, LEG AND FOOT PAIN, NUMBNESS AND TINGLING. Present since: > 5 YEARS AGO Pain Scale: WORST 8/10, LEAST 0/10 Currently: 5/10 Is it getting better, worse or staying the same: STAYING THE SAME Commenced as a result of: NO APPARENT REASON Symptoms at onset: R HIP PAIN Worse: IT VARIES. IT COMES AND GOES WITH DIFFERENT THINGS DAILY. SOMETIMES SITTING, STANDING, WALKING, LYING DOWN (VERY PAINFUL SOMETIMES), BENDING, LIFTING, AVOIDS STEPS AND GOES UP WITH LEFT LEG IF HAS TO DO STEPS, DOWN ONE STEP AT A TIME. Better: BIOFREEZE, PAIN MEDICINE Disturbed sleep: YES - VERY PAINFUL SOME NIGHTS - VARIES. 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 Previous history/Previous treatment: IN AND OUT OF PHYSICAL THERAPY IN [place] - WATER THERAPY HELPS. ALSO DID WEIGHT MACHINES BUT PAINFUL. NO BACK OR HIP SURGERY OR INJECTIONS. CHIROPRACTIC HERE AND [place] WITH LAST TIME BEING ABOUT 3 YEARS AGO - TEMPORARY BENEFIT. SOME MASSAGE - RECENT WITH SOME BENEFIT. Treatment this episode: PAIN MEDICINE. Coughing/sneezing/straining: NEGATIVE FOR INCREASED PAIN. Gait: INTERMITTENT USE OF CANE ON ALMOST DAILY BASIS. Bowel or Bladder Dysfunction: SOME URINARY INCONTINENCE AND OVER-ACTIVE BLADDER BUT STATES SHE CAN EMPTY BLADDER BEFORE GOING IN POOL AND AVOID LEAKING. Accidents: NO Unexplained weight loss: NO Imaging: NONE RECENT. PATIENT REPORTS BACK AND HIP X-RAYS AT [facility] ABOUT 2 YEARS AGO SHOWING ARTHRITIS. PMH/Recent major surgery: H/O SCOLIOSIS. PATIENT REPORTS HER R GROIN WOUND FROM THE CARDIAC CATH IS HEALED - STATES HER VEIN WAS TOO SMALL FOR A STENT SO SHE IS BEING TREATED WITH MEDICATION. CAD (coronary artery disease) H/O breast biopsy Hx of CABG 2019 HTN IDDM L ROTATOR CUFF REPAIR 2016 OSTEOPOROSIS Objective Objective: Sitting/Standing Posture: SCOLIOSIS. DECREASED LORDOSIS. INCREASED TRUNK FLEXION. Other Observations: UPON OBSERVATION TODAY, PATIENT HAS A WELL HEALED R INGUINAL INCISION FROM CARDIAC CATH - THERE ARE NO VISIBLE OPEN AREAS OR SIGNS OF DRAINAGE OR REDNESS OR SWELLING. PATIENT DENIES DRAINAGE AND ALSO FEELS IT IS WELL HEALED. PATIENT HAS AN APPOINTMENT WITH HER BLAST HOLE DRILLER TOMORROW AND SHE IS GOING TO DOUBLE CHECK TO MAKE SURE IT IS OK FOR HER TO GET IN THE POOL BECAUSE SHE WANTS TO DO AQUATIC THERAPY. INDEP GAIT INTO PT WITHOUT AD. DECREAS ED CADANCE. IRREGULAR GAIT WITH INTERMITTENT LIMP ON R LE. NO LOB. Sensory deficit: KEAGAN LE LIGHT TOUCH SENSATION GROSSLY INTACT AND SYMMETRICAL ROM deficit: TIGHT KEAGAN LE HIPS ALL PLANES, HS AND CALVES. Motor deficit: KEAGAN LE WEAKNESS R > LEFT. R HIP 4-/5, KNEE 4-/5, ANKLE 4-/5. L HIP 4/5, KNEE 4/5, ANKLE 4/5. INTERMITTENT R LE SHAKING DURING TESTING AND NO SHAKING AT REST. Reflexes: KEAGAN LE QUAD AND ACHILLES DTR'S 1+ Dural Signs: POSITIVE R LE. Lumbar mvmt loss: flex - MOD ext - LEANDRA R SG - LEANDRA L SG - LEANDRA PATIENT C/O LOW BACK PAIN WITH LUMBAR ROM TESTING ALL PLANES BUT NO WORSE A RESULT. Core strength: POOR Palpation: R LUMBAR, ILIAC CREST, CALF AND LATERAL ANKLE. PATIENT REPORTS THEY TESTED HER FOR BLOOD CLOT AND IT WAS NEGATIVE BUT X-RAY OF HER ANKLE SHOWS BONE SPUR. TUG TIME: 14.73 SEC WITHOUT AD. 30 STS TEST: 3 WITH ONE UE ASSIST - STOPS BEFORE 30 SEC DUE TO R LE SHAKING. Balance/Special Test Scores Oswestry Low Back Score: 29 Goals Goal 1:: DECREASE C/OLOW BACK AND R HIP PAIN BY AT LEAST 50% TO EASE ADL AND WORK FUNCTION. Goal Time Frame: 4-6 Weeks Goal 2:: IMPROVE PERSONAL CARE, LIFTING, WALKING, SITTING, STANDING, SLEEP, SOCIAL LIFE, TRAVEL, HOMEMAKING AND WORK FUNCTION WITH AT LEAST 5 POINT BACK OSWESTRY SCORE IMPROVEMENT. Goal Time Frame: 4-6 Weeks Goal 3:: INSTRUCT IN PROPHYLAXIS Goal Time Frame: 4-6 Weeks Rehabilitation Potential Physical Therapy Diagnosis: CORE AND LE STIFFNESS AND WEAKNESS R LE > L LE. DIFFICULTY WITH GAIT. Rehabilitation Potential: Good Anticipated Interventions Patient/Client Instruction: Educate patient on: Condition, Plan of Care and Risk Factors For the Purpose of:: To improve self management Therapeutic Exercise to Include: Strength training, Body mechanics, Postural training, Flexibilty training, Neuromotor development, In an aquatic setting and Dynamic Lumbar Stabilization For the Purpose of:: To decrease pain, To increase ROM, To improve muscle performance and motor function, To improve ability to perform ADL's, To increase tolerance to activity/condition/position, To improve ability of physical actions for home/community/work/leisure, To improve gait and locomotor functions and To improve self management Cryotherapy (ice pack, ice massage): Yes Thermo therapy (hot pack): Yes Ultrasound (thermal/non thermal): Yes For the Purpose of:: To decrease pain and To improve nutrient delivery to tissue Text: Thank you for the opportunity to evaluate your patient. For Medicare and Medicare HMO plans, please review the plan of care and approve it. It will need to be FAXED BACK to us at [phone] for Medicare purposes. For Medicare only, by signing this I certify the plan of care. Please let me know if there are questions or concerns regarding this plan of care. Physician Signature: Date:
--- NOTE | 2024-09-05 14:18 | HP.PTREVAL_ITS ---
Re-Evaluation Intro: Liset Flores, [employer], It has been my pleasure to treat ОЛЕГ CRAFT over the last 9 visits for LUMBAR DDD. Please see the progress note below for an update on the physical therapy plan of care! Subjective Subjective: PATIENT REPORT THE THERAPY IS HELPING. PATIENT REPORTS SHE ISN'T HURTING MUCH OR OFTEN. SHE REPORTS SHE IS ABLE TO WALK BETTER WITH LESS PAIN. SHE REPORTS WORK IS GOING BETTER. AT WORK SHE STATES SHE CAN PUSH HER CHART BETTER AND SHE DOESN'T LIMP MUCH SINCE STARTING THERAPY. SHE STATES SHE WOULD LIKE TO TRY THE WATER EX NOW TO SEE IF THAT HELPS MORE. HER PAIN COMES AND GOES AND RANGES 0-5/10 NOW. PATIENT ALSO STATES IT DOESN'T BOTHER ME AT NIGHT ANYMORE I DON'T WAKE UP IN PAIN ANYMORE. Objective Objective/Function: PATIENT WAS SEEN TODAY FOR RE-ASSESSMENT OF PROGRESS TOWARD THE SET PT GOALS AND THE NEED FOR FURTHER PHYSICAL THERAPY VS READINESS FOR DISCHARGE. UPON EXAM TODAY: THIS PATIENT AMBULATES INDEP'LY INTO PT WITH DECREASED CADANCE, WITHOUT ANY AD'S AND WITHOUT LOB. SHE DENIES ANY FALLS SINCE STARTING PT THIS EPISODE OF CARE. SHE IS MAKING GOOD PROGRESS WITH PT AND IS A GOOD CANDIDATE TO CONTINUE PT BASED ON PROGRESS MADE AND ROOM FOR FURTHER PT. PATIENT IS AGREEABLE. Motor deficit: KEAGAN LE STRENGTH GROSSLY 5/5 EXCEPT R HIP 4-/5 AND L 4/5. Dural Signs: NEGATIVE KEAGAN LE'S. Lumbar mvmt loss: flex - MIN ext - MOD R SG - MOD L SG - MOD PATIENT C/O INCREASED R LOW BACK PAIN WITH R SG TESTING TODAY BUT NW A RESULT. Core strength: FAIR TUG TIME: 12.53 SEC WITHOUT AD. 30 STS TEST: 6 WITHOUT UE ASSIST Plan Plan Plan: AQUATIC THERAPY THERAPY 2X'S A WK X 8-10 VISITS TOLERATED FOR PAIN RELIEF, POSTURE CORRECTION/STRENGTHENING, INSTRUCTION IN APPROPRIATE BODY MECHANICS AND ACTIVITY MODIFICATIONS. DLS STARTING WITH A NEUTRAL SPINE PROGRESSING ROM TOLERATED. KEAGAN LE ROM, STRETCHING AND STRENGTHENING. HEP INSTRUCTION. Balance/Gait/Functional tests Balance/Special Test Scores Oswestry Low Back Score: 16 Goals Goals Goal 1:: DECREASE C/OLOW BACK AND R HIP PAIN BY AT LEAST 50% TO EASE ADL AND WORK FUNCTION - Goal Met New Goal: DECREASE C/OLOW BACK AND R HIP PAIN BY AT LEAST 75% TO EASE ADL AND WORK FUNCTION Goal Time Frame: 4-6 Weeks Goal 2:: IMPROVE PERSONAL CARE, LIFTING, WALKING, SITTING, STANDING, SLEEP, SOCIAL LIFE, TRAVEL, HOMEMAKING AND WORK FUNCTION WITH AT LEAST 5 POINT BACK OSWESTRY SCORE IMPROVEMENT. Goal Time Frame: 4-6 Weeks Goal Progress: Progressing Goal 3:: INSTRUCT IN PROPHYLAXIS Goal Time Frame: 4-6 Weeks Goal Progress: Progressing Anticipated Interventions Anticipated Interventions Patient/Client Instruction: Educate patient on: Condition, Plan of Care and Risk Factors For the Purpose of:: To improve self management Therapeutic Exercise to Include: Strength training, Body mechanics, Postural training, Flexibilty training, Neuromotor development, In an aquatic setting and Dynamic Lumbar Stabilization For the Purpose of:: To decrease pain, To increase ROM, To improve muscle performance and motor function, To improve ability to perform ADL's, To increase tolerance to activity/condition/position, To improve ability of physical actions for home/community/work/leisure, To improve gait and locomotor functions and To improve self management Cryotherapy (ice pack, ice massage): Yes Thermo therapy (hot pack): Yes Ultrasound (thermal/non thermal): Yes For the Purpose of:: To decrease pain and To improve nutrient delivery to tissue Re-Evaluation Ending Re-evaluation ending: Please do not hesitate to contact me at [phone] by phone or if you have questions or concerns regarding this new plan of care! Sincerely, Oly Ghosh, PT, Cert MDT
--- NOTE | 2024-10-03 12:02 | HP.PTDCSUM ---
Discharge Summary D/C summary: It has been my pleasure to treat ОЛЕГ CRAFT referred by TULIO Castillo, with the diagnosis of LUMBAR DDD for a total of 15 visit(s). Discharge Date: 10/03/24 Please see the following information for a summary of their discharge status. Subjective Subjective: PATIENT REPORTS HER BACK PAIN IS BETTER. IT COMES AND GOES NOW. 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 SHE STATES THE BACK PAIN COMES ONCE IN A WHILE AND SO SHE STILL TAKES PAIN MEDICATION AND THAT TAKES IT AWAY. 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 SHE STATES SHE HASN'T HAD TO USE HER CANE SINCE STARTING PHYSICAL THERAPY. Pain R hip: Pain Intensity (Out of 10): 5 Overall Improvement % Improvement: 80 Objective Objective/Function: PATIENT WAS SEEN TODAY FOR RE-ASSESSMENT OF PROGRESS TOWARD THE SET PT GOALS AND THE NEED FOR FURTHER PHYSICAL THERAPY VS READINESS FOR DISCHARGE. UPON EXAM TODAY: THIS PATIENT AMBULATES INDEP'LY INTO PT WITHOUT ANY AD'S AND WITH GOOD CADANCE. Motor deficit: KEAGAN LE STRENGTH IS GROSSLY 5/5. Dural Signs: NEGATIVE KEAGAN LE'S. Lumbar mvmt loss: flex - MIN ext - MOD R SG - MOD L SG - MOD PATIENT C/O MILD INCREASED LBP WITH LUMB EXT ROM TESTING ONLY - NW A RESULT. Core strength: FAIR TUG TIME: 8.79 SEC INDEP'LY WITHOUT AD. 30 STS TEST: 10 WITHOUT UE ASSIST Goals Goal 1:: DECREASE C/OLOW BACK AND R HIP PAIN BY AT LEAST 50% TO EASE ADL AND WORK FUNCTION - Goal Met New Goal: DECREASE C/OLOW BACK AND R HIP PAIN BY AT LEAST 75% TO EASE ADL AND WORK FUNCTION Goal Progress: Goal Met Goal 2:: IMPROVE PERSONAL CARE, LIFTING, WALKING, SITTING, STANDING, SLEEP, SOCIAL LIFE, TRAVEL, HOMEMAKING AND WORK FUNCTION WITH AT LEAST 5 POINT BACK OSWESTRY SCORE IMPROVEMENT. Goal Progress: Goal Met Goal 3:: INSTRUCT IN PROPHYLAXIS Goal Progress: Goal Met Plan Plan: D/C D/C Information d/c sentence: If there are questions or concerns regarding this patient's physical therapy, please feel free to call me at [phone]. Thank you for the referral of this patient. Sincerely, Oly Ghosh, PT, Cert MDT Balance/Gait/Functional tests Balance/Special Test Scores Oswestry Low Back Score: 11 Improvement % Improvement: 80
== END 2024-10-03 13:36 | disposition home or self-care (01) ==
LOC: PT 11:30
PROVIDERS: PCP Physician Assistant; Referring Provider Clinical Nurse Specialist Adult Health; Visit Provider Clinical Nurse Specialist Adult Health
DX: M51.360 Other intervertebral disc degeneration, lumbar region with discogenic back pain only (principal)
CPT/HCPCS: 97110; 97113; 97162; 97530